=== PATIENT | female | born 1945 | race Caucasian/White ===

== ENCOUNTER 2019-02-17 02:51 | Emergency (ER) | payer MEDICARE, OTHER ==
--- NOTE | 2019-02-17 07:05 | CR ---
Chest: Portable view of the chest was obtained. Comparison: No prior chest x-ray. Heart size and mediastinum are normal. Lungs are clear. Bony structures are grossly intact. Impression: 1. Nothing acute is appreciated on portable chest x-ray. Diagnostic code #1
--- NOTE | 2019-02-17 07:08 | EDM.PDOC ---
ED HPI GENERAL MEDICAL PROBLEM - General Chief Complaint: Chest Pain Stated Complaint: CHEST PAIN Time Seen by Provider: 02/17/19 06:58 Source of Information: Reports: Patient, RN Notes Reviewed - History of Present Illness INITIAL COMMENTS - FREE TEXT/NARRATIVE: 73 year old female with onset of indigestion type pressure upper abd, lower chest about 90 minutes prior to arrival. No radiation of pain, now at time of exam much later pain is gone. She does not have hx of Htn, diabetes, or known CAD. The discomfort did not radiate to her shoulder, or arm. She has not been short of breath and has not been recently ill in any other way. Middle Chest Pain Score (Numeric/FACES): 5 - Related Data Allergies Allergy/AdvReac Type Severity Reaction Status Date / Time clindamycin Allergy Other Verified 02/17/19 03:10 Home Meds: Home Meds Cephalexin [Keflex] 500 mg PO TID 02/17/19 [History] Past Medical History - Past Surgical History Cardiovascular Surgical History: Reports: Other (See Below) Other Cardiovascular Surgeries/Procedures: vein ligationq Musculoskeletal Surgical History: Reports: Knee Replacement Social & Family History - Family History Family Medical History: Noncontributory - Tobacco Use Smoking Status *Q: Never Smoker - Caffeine Use Caffeine Use: Reports: Coffee - Recreational Drug Use Recreational Drug Use: No ED ROS GENERAL - Review of Systems Review Of Systems: See Below Constitutional: Denies: Fever, Chills, Diaphoresis HEENT: Denies: Throat Pain Respiratory: Denies: Shortness of Breath, Pleuritic Chest Pain, Cough Cardiovascular: Reports: Chest Pain (gone) GI/Abdominal: Reports: Abdominal Pain (upper abd pressure, gone) Musculoskeletal: Denies: Shoulder Pain, Arm Pain, Back Pain Skin: Reports: No Symptoms Neurological: Reports: No Symptoms ED EXAM, GENERAL - Physical Exam Exam: See Below General Appearance: Alert, No Apparent Distress Eye Exam: Bilateral Eye: PERRL Throat/Mouth: Normal Inspection Head: Atraumatic Neck: Supple Respiratory/Chest: No Respiratory Distress, Lungs Clear, Normal Breath Sounds Cardiovascular: Regular Rate, Rhythm GI/Abdominal: Soft, Non-Tender. No: Guarding Back Exam: No: CVA Tenderness (L), CVA Tenderness (R) Extremities: Normal Inspection, Normal Range of Motion Neurological: Alert, Oriented, No Motor/Sensory Deficits Skin Exam: Warm, Dry, Normal Color Course - Vital Signs Last Recorded V/S: Last Vital Signs Temp 97.9 F 02/17/19 03:06 Pulse 93 02/17/19 03:06 Resp 19 02/17/19 03:06 BP 161/85 H 02/17/19 03:06 Pulse Ox 96 02/17/19 03:06 - Orders/Labs/Meds Orders: Active Orders 24 hr Category Date Time Status EKG 12 Lead [EKG Documentation Completion] [RC] ROUTINE Care 02/17/19 03:13 Active Labs: Laboratory Tests 02/17/19 02/17/19 02/17/19 Range/Units 03:23 03:23 07:15 WBC 9.40 (3.98-10.04) K/mm3 RBC 4.49 (3.98-5.22) M/mm3 Hgb 13.8 (11.2-15.7) gm/dl Hct 42.1 (34.1-44.9) % MCV 93.8 (79.4-94.8) fl MCH 30.7 (25.6-32.2) pg MCHC 32.8 (32.2-35.5) g/dl RDW Std Deviation 44.8 (36.4-46.3) fL Plt Count 253 (182-369) K/mm3 MPV 10.7 (9.4-12.3) fl Neutrophils % (Manual) 58 (40-60) % Band Neutrophils % 0 (0-10) % Lymphocytes % (Manual) 30 (20-40) % Atypical Lymphs % 0 % Monocytes % (Manual) 7 (2-10) % Eosinophils % (Manual) 2 (0.7-5.8) % Basophils % (Manual) 3 H (0.1-1.2) Platelet Estimate Adequate Plt Morphology Comment Normal RBC Morph Comment Normal Sodium 142 (136-145) mEq/L Potassium 3.6 (3.5-5.1) mEq/L Chloride 106 (98-107) mEq/L Carbon Dioxide 26 (21-32) mEq/L Anion Gap 13.6 (5-15) BUN 14 (7-18) mg/dL Creatinine 0.9 (0.55-1.02) mg/dL Est Cr Clr Drug Dosing 41.38 mL/min Estimated GFR (MDRD) > 60 (>60) mL/min BUN/Creatinine Ratio 15.6 (14-18) Glucose 112 (83-115) mg/dL Calcium 9.1 (8.5-10.1) mg/dL Total Bilirubin 0.5 (0.2-1.0) mg/dL AST 117 H (15-37) U/L ALT 77 H (14-59) U/L Alkaline Phosphatase 96 (46-116) U/L Troponin I < 0.017 < 0.017 (0.00-0.056) ng/mL Total Protein 7.1 (6.4-8.2) g/dl Albumin 3.4 (3.4-5.0) g/dl Globulin 3.7 gm/dL Albumin/Globulin Ratio 0.9 L (1-2) Departure - Departure Time of Disposition: 08:12 Disposition: Home, Self-Care 01 Condition: Fair Clinical Impression: Atypical chest pain Gastroesophageal reflux disease Qualifiers: Esophagitis presence: without esophagitis Qualified Code(s): K21.9 - Gastro- esophageal reflux disease without esophagitis Instructions: Chest Wall Pain, [id number], Gastroesophageal Reflux Disease, Adult, [id number] Referrals: Fallon Ham MD [Primary Care Provider] - Forms: ED Department Discharge Additional Instructions: pepcid (famotidine, available OTC) 20 mg twice daily for 1 week and thereafter as needed. You also can take 1 oz or 2 tablespoons liquid antacid such as maalox or mylanta if symptoms reoccur. Follow up with your regular medical provider in 7 to 10 days, return to ED as needed if symptoms worsening in any way.
== END 2019-02-17 08:23 | disposition home or self-care (01) ==
LOC: JD.ED 02:51
DX: K21.9 Gastro-esophageal reflux disease without esophagitis (principal); Z88.1 Allergy status to other antibiotic agents
CPT/HCPCS: 36415; 71045; 71045-26; 80053; 84484; 85007; 85027; 93005; 99285-25

== ENCOUNTER 2021-05-07 14:13 | Emergency (ER) | payer MEDICARE, OTHER | END 2021-05-07 16:28 | disposition home or self-care (01) | LOC: JD.ED 14:13 | DX: U07.1 COVID-19 (principal); J12.82 Pneumonia due to coronavirus disease 2019; J45.909 Unspecified asthma, uncomplicated; Z88.1 Allergy status to other antibiotic agents | CPT/HCPCS: 36600; 82803; 87502-QW; 99283; 99284 ==